=== PATIENT | female | born 1985 | race Caucasian/White ===

== ENCOUNTER 2018-06-19 09:14 | Emergency (ER) | payer OTHER ==
[2018-06-19] MEDS: IBUPROFEN 600 MG TAB PO (10:04)
== END 2018-06-19 10:16 | disposition home or self-care (01) ==
LOC: FTE 09:14
DX: J02.9 Acute pharyngitis, unspecified (principal)
CPT/HCPCS: 99282; Z7502

== ENCOUNTER 2018-10-10 10:35 | Emergency (ER) | payer OTHER | END 2018-10-10 12:35 | disposition home or self-care (01) | LOC: FTE 10:35 | DX: J20.9 Acute bronchitis, unspecified (principal) | CPT/HCPCS: 99283 ==

== ENCOUNTER 2018-11-23 16:43 | Emergency (ER) | payer OTHER ==
[2018-11-23] MEDS: IBUPROFEN 600 MG TAB PO (18:15)
[2018-11-23 18:17] LABS: URINE BLOOD (Dip) POC 1+ (NEGATIVE); URINE GLUCOSE (Dip) POC Negative (NEGATIVE); URINE KETONES (Dip) POC Negative (NEGATIVE); URINE LEUKOCYTE EST (Dip) POC 1+ (NEGATIVE); URINE NITRITE (Dip) POC Negative (NEGATIVE); URINE TOTAL PROTEIN POC Negative (NEGATIVE)
== END 2018-11-23 18:56 | disposition home or self-care (01) ==
LOC: FTE 16:43
DX: G44.229 Chronic tension-type headache, not intractable (principal)
CPT/HCPCS: 81003; 81025